=== PATIENT | male | born 1990 | race African-American/Black ===

== ENCOUNTER 2021-05-31 14:50 | Emergency (ER) | payer MEDICAID, SELFPAY ==
[2021-05-31 14:51] VITALS: BP 163/87; PULSE 87; RESP 18; TEMP 36.6; O2SAT 98; BMI 36.9
--- NOTE | 2021-05-31 15:00 | ED.VIS.DENTA ---
HPI History of Present Illness Chief Complaint: Dental Informant: patient Onset/Context/Timing Onset: Month(s) Context: Gradual Onset Timing: Waxes and wanes Current Severity: Mild Maximum Severity: Moderate Narrative Narrative: Patient presents with a one month history of dental pain - waxing and waning. Yesterday was the worst pain. No recent injury. Patient has a dentist he can follow-up with and has been taking Tylenol and Ibuprofen for pain. He feels he needs to be on antibiotics. PFSH PFSH no medical history Home Medications penicillin V potassium 500 mg PO 4X/DAY #40 tab 05/31/21 [Rx Last Taken Unknown] Allergy/AdvReac Type Severity Reaction Status Date / Time No Known Allergies Allergy Verified 05/31/21 14:53 Social History Smoking Status: Never smoker ROS ROS ED Constitutional Constitutional ED: Denies chills or fever(s) Eyes Eyes: Denies change in vision ENT ENT ED: Reports other Details: Dental pain, right greater than left ; Denies sore throat Cardiovascular Cardiovascular: Denies chest pain Respiratory/Chest Respiratory/Chest: Denies cough or dyspnea Gastrointestinal Gastrointestinal: Denies abdominal pain, diarrhea, nausea or vomiting Genitourinary Genitourinary ED: Denies dysuria Musculoskeletal Musculoskeletal: Denies back pain Integumentary Denies rash Neurologic Neurologic: Denies headache(s) or weakness Psychiatric Psychiatric: Denies anxiety or depression Endocrine Endocrinology: Denies polydipsia or polyuria Allergic/Immunologic Allergic/Immunologic ED: Denies urticaria EXAM Physical Exam Const Vital Signs: 05/31/21 14:51 05/31/21 15:15 Temperature 97.8 F 18 F L Temperature Source Temporal Pulse Rate 87 Respiratory Rate 18 Blood Pressure 163/87 H Blood Pressure Mean 112 Pulse Ox 98 Oxygen Delivery Method Room Air Positive well nourished and well developed General Appearance ED: well developed HEENT Reports normocephalic and head/scalp atraumatic HEENT Narrative: No facial edema or erythema. Intraoral examination feels mild tenderness to the first mandibular molars right greater than left. No surrounding gum edema. No trismus. Posterior pharynx exam is normal. Patient speaks with a strong voice and is tolerating secretions well. Eyes PERRL and EOMs intact bilaterally Neck supple Chest Wall inspection of chest normal and palpation of chest normal Resp normal respiratory effort and clear to auscultation bilaterally Cardio regular rate and regular rhythm GI normal to inspection, nondistended, normoactive bowel sounds Palpation: soft Back/Spine no CVA tenderness Extremity normal to inspection Neuro oriented x3 and no sensory deficits noted Sensorium / Orientation: alert Motor Exam: strength 5/5 throughout Psych mental status grossly normal Skin no rashes or lesions noted [facility] Treatment and Re-Evaluation Comments:: Patient will continue Tylenol ibuprofen for pain. He will be given a prescription for Pen-Vee K. He will follow-up with his dentist this week. Impression: Odontalgia Discharge Plan Triage Chief Complaint: Dental ED Provider: Leyla Way Dx/Rx/DC Orders Clinical Impression: Odontalgia Instructions: ED Dental Pain Prescriptions: New penicillin V potassium 500 MG tablet 500 mg PO 4X/DAY Qty: 40 RF: 0 Primary Care Provider: Care Physician,No Primary Referrals: Care Physician,No Primary [Primary Care Provider] - Activity Restrictions/Additional Instructions: Follow-up with your dentist as soon as possible. Disposition Disposition: Home, Self Care Discharge Date/Time: 05/31/21 15:16
[2021-05-31] MEDS: Penicillin Vk 250 MG Tablet 500 MG PO (15:14)
[2021-05-31 15:15] VITALS: TEMP -7.7; TEMP 18
== END 2021-05-31 15:16 | disposition home or self-care (01) ==
PROVIDERS: Emergency Provider Emergency Medicine
DX: K08.89 Other specified disorders of teeth and supporting structures (principal)
CPT/HCPCS: 99283